=== PATIENT | male | born 1955 | race Hispanic/Latino ===

== ENCOUNTER 2021-08-16 07:56 | Day surgery (SDC) | payer OTHER ==
[2021-08-15 15:31] LABS: BASOPHILS % (AUTO) 0.8 % (0.0-5.0); EOSINOPHILS % (AUTO) 2.7 % (0.0-8.0); LYMPHOCYTES % (AUTO) 30.4 % (21.0-51.0); MEAN CORPUSCULAR HEMOGLOBIN 31.3 pg (27.0-33.0); MEAN CORPUSCULAR HGB CONC 33.8 g/dL (32.0-36.0); MEAN CORPUSCULAR VOLUME 92.7 fL (79-99); MONOCYTES % (AUTO) 7.8 % (3.0-13.0); NEUTROPHILS % (AUTO) 57.9 % (40.0-77.0); PLATELET COUNT (AUTO) 178 K/uL (130-400); RED BLOOD CELL COUNT(AUTO) 4.53 MIL/uL (4.50-6.20); WHITE BLOOD COUNT (AUTO) 5.2 K/uL (4.8-10.8)
[2021-08-15 15:32] LABS: APPEARANCE,URINE Clear (CLEAR); BILIRUBIN,URINE Negative (NEGATIVE); COLOR,URINE Yellow (YELLOW); GLUCOSE, URINE (UA) Negative (NEGATIVE); KETONES,URINE Negative (NEGATIVE); LEUKOCYTE ESTERASE ,URINE Negative (NEGATIVE); NITRATE,URINE Negative (NEGATIVE); OCCULT BLOOD,URINE Negative (NEGATIVE); PH,URINE 6.5 (5.0-8.0); PROTEIN,URINE Negative (NEGATIVE)
[2021-08-15 15:35] VITALS: BP 159/73
[2021-08-15 15:44] LABS: INR 0.94 (0.85-1.15); PROTHROMBIN TIME 10.3 SEC (9.6-11.6)
[2021-08-15 15:45] LABS: PARTIAL THROMBOPLASTIN TIME 25.1 SEC (26.3-35.5)
[2021-08-15 15:46] LABS: ALBUMIN 3.7 g/dL (3.5-5.0); BILIRUBIN,TOTAL 0.5 mg/dL (0.2-1.0); CREATININE 0.7 mg/dL (0.5-1.5); POTASSIUM 4.4 mmol/L (3.5-5.1); TOTAL PROTEIN, SERUM 7.3 g/dL (6.0-8.3)
[2021-08-16] VITALS (16 sets, daily range): BP systolic 124–156; BP diastolic 65–81
[~2021-08-16] VITALS: Ht 175.3 cm; Wt 90.4 kg
[~2021-08-16 07:56] MED LIST: 0.9%NACL 1000ML 1,000 ML IV SCH
[2021-08-16] MEDS ORDERED: FAMOTIDINE 20MG VIAL IV ONE (09:38)
[2021-08-16] MEDS ORDERED: FENTANYL CITRATE PF 50 MCG/1 ML 2ML VIAL ONE (09:47)
[2021-08-16] MEDS ORDERED: GLYCOPYRROLATE 1 MG/5 ML SYRINGE ONE (09:47)
[2021-08-16] MEDS ORDERED: PROPOFOL 10 MG/ML 20ML VIAL IV ONE (09:47)
[2021-08-16] MEDS ORDERED: MIDAZOLAM HCL 1 MG/ML 2ML VIAL ONE (09:47)
[2021-08-16] MEDS ORDERED: BUPIVACAINE/PF 0.5% 30ML VIAL ONE (09:47)
[2021-08-16] MEDS ORDERED: NEOSTIGMINE 5MG/5ML SYR IV ONE (09:47)
[2021-08-16] MEDS ORDERED: LIDOCAINE PF 100MG/5ML (2%) SYRINGE 5ML ONE (09:48)
[2021-08-16] MEDS ORDERED: SUCCINYLCHOLINE CHLORIDE 20 MG/ML 10 ML VIAL ONE (09:48)
[2021-08-16] MEDS ORDERED: ONDANSETRON 4MG INJ ONE (09:48)
[2021-08-16] MEDS ORDERED: ROCURONIUM 10MG/1ML SYR 10 MG/ML ML ONE (09:48)
[2021-08-16] MEDS ORDERED: IBUP-2070 PO (09:58)
[2021-08-16] MEDS ORDERED: LISI20TA24 PO (09:58)
[2021-08-16] MEDS ORDERED: METF-446 PO (09:58)
[2021-08-16] MEDS ORDERED: TRAZ-185 PO (09:58)
[2021-08-16] MEDS ORDERED: GLIP2.5T2 PO (09:58)
[2021-08-16] MEDS ORDERED: ATOR-2 PO (09:58)
[2021-08-16] MEDS: CEFAZOLIN SODIUM 1 GM VIAL IVP SCH ×2 (10:00→10:05)
[2021-08-16] MEDS ORDERED: MEPERIDINE-PF 25 MG/ML SYG ONE ×2 (10:41→11:20)
== END 2021-08-16 12:35 | disposition home or self-care (01) ==
LOC: DAH 07:56
PROVIDERS: ATTEND Student in an Organized Health Care Education/Training Program
DX: K81.1 Chronic cholecystitis (principal); K43.9 Ventral hernia without obstruction or gangrene; I10 Essential (primary) hypertension; E78.5 Hyperlipidemia, unspecified; E11.9 Type 2 diabetes mellitus without complications; F17.210 Nicotine dependence, cigarettes, uncomplicated; Z79.84 Long term (current) use of oral hypoglycemic drugs; Z98.890 Other specified postprocedural states; Z83.3 Family history of diabetes mellitus; Z79.899 Other long term (current) drug therapy; Z79.01 Long term (current) use of anticoagulants
CPT/HCPCS: 36415; 47562; 49560; 71045; 80053; 81003; 82948 ×2; 85025; 85610; 85730; 87635; 93005; A4215; A4221; A4222; A4223; A4600; A4649 ×2; A4663; A6206; A6207; C1769 ×3; C9803; J0330; J0690; J2001; J2175 ×2; J2250; J2405; J2704; J2710; J3010; J3490 ×3; J7030 ×2